=== PATIENT | female | born 1940 | race Caucasian/White ===

== ENCOUNTER 2019-05-28 13:15 | Emergency (ER) | payer MEDICARE, BC ==
[2019-05-28 13:38] VITALS: BP 143/77
[2019-05-28] MEDS ORDERED: Lidocaine 1% MPF ** 5 ML VIAL INJ ONE (13:49)
--- NOTE | 2019-05-28 14:16 | UC ---
Skin Complaint HPI - HPI Summary HPI Summary: Pt presents with c/o of soft, mildly tender "sebaceous cyst" to anterior chest that began 1 week prior. Pt states she has been "hot packing" the area but no improvement or relief. - History of Current Complaint Chief Complaint: UCSkin Time Seen by Provider: 05/28/19 13:32 Stated Complaint: SKIN CONCERN Hx Obtained From: Patient ?: No Onset/Duration: Gradual Onset, Lasting Days - 7, Still Present Skin Exposure Onset/Duration: Worse Since: - onset Timing: Constant Onset Severity: Mild Current Severity: Moderate Pain Intensity: 2 Location: Discrete - right side of chest wall between breasts. Character: Redness, Raised, Painful Aggravating Factor(s): Touch Alleviating Factor(s): Nothing Associated Signs & Symptoms: Positive: Tenderness Related History: Other: - has hx of sebaceous cysts - Allergy/Home Medications Allergies/Adverse Reactions: Allergies Allergy/AdvReac Type Severity Reaction Status Date / Time No Known Allergies Allergy Verified 05/28/19 13:35 Home Medications: Home Medications Cholecalciferol (Vitamin D3) [Vitamin D3] 4,000 unit PO DAILY 05/28/19 [History Confirmed 05/28/19] Losartan TAB* [Cozaar TAB*] 50 mg PO DAILY 05/28/19 [History Confirmed 05/28/19] Omeprazole 40 mg PO DAILY 05/28/19 [History Confirmed 05/28/19] PMH/Surg Hx/FS Hx/Imm Hx Previously Healthy: Yes - Surgical History Surgical History: Yes Surgery Procedure, Year, and Place: HYSTERECTOMY, PACE MAKER INSERTIONx2. right ear surgery - Family History Known Family History: Positive: Hypertension - Social History Occupation: Retired Lives: Alone Alcohol Use: None Substance Use Type: None Smoking Status (MU): Never Smoked Tobacco Have You Smoked in the Last Year: No - Immunization History Vaccination Up to Date: Yes Review of Systems All Other Systems Reviewed And Are Negative: Yes Constitutional: Positive: Negative Skin: Positive: Other - infected cyst, hx of sebaceous cysts Eyes: Positive: Negative ENT: Positive: Negative Respiratory: Positive: Negative Cardiovascular: Positive: Negative Gastrointestinal: Positive: Negative Genitourinary: Positive: Negative Motor: Positive: Negative Neurovascular: Positive: Negative Musculoskeletal: Positive: Negative Neurological: Positive: Negative Psychological: Positive: Negative Is Patient Immunocompromised?: No Physical Exam Triage Information Reviewed: Yes Appearance: Well-Appearing Vital Signs: Initial Vital Signs Temp 97.7 F 05/28/19 13:32 Pulse 82 05/28/19 13:32 Resp 20 05/28/19 13:32 BP 143/77 05/28/19 13:32 Pulse Ox 98 05/28/19 13:32 Vital Signs Reviewed: Yes Eye Exam: Normal ENT Exam: Normal Dental Exam: Normal Neck exam: Normal Respiratory Exam: Normal Respiratory: Positive: No respiratory distress Musculoskeletal Exam: Normal Neurological Exam: Normal Psychological Exam: Normal Skin Exam: Other - 3 CM X 2 Cm soft, erythematous, tender flucuant area with purrulent drainage right medial upper breast just right of sternum Procedures - Incision and Drainage Right Anterior Breast Site: right anterior proximal medial breast/chest just lateral of sternum Anesthesia: Local Instrument(s): Scalpel - 11 Packing: Other - no packing, small amount of purulent drainage, wound cleansed with normal saline Course/Dx - Differential Diagnoses - Skin Complaint Differential Diagnoses: Abscess - Diagnoses Provider Diagnosis: Abscess Discharge - Sign-Out/Discharge Documenting (check all that apply): Patient Departure All imaging exams completed and their final reports reviewed: No Studies - Discharge Plan Condition: Stable Disposition: HOME Prescriptions: Cephalexin CAP* [Keflex 500 CAP*] 500 mg PO Q12H #20 cap Patient Education Materials: Abscess (ED), Abscess Incision and Drainage (DC) Referrals: Jhonathan Tan MD [Primary Care Provider] - If Needed Additional Instructions: Please change your dressing at least twice a day, more frequently if the dressing becomes soiled or wet. Please wash the area with soap and water. Apply a dressing to avoid drainage on your clothes. If your symptoms do not improve, please follow up with your PCP or go to the closest emergency room - Billing Disposition and Condition Condition: STABLE Disposition: Home
== END 2019-05-28 14:29 | disposition home or self-care (01) ==
LOC: UCCORT 13:15
DX: L02.213 Cutaneous abscess of chest wall (principal); Z95.0 Presence of cardiac pacemaker
CPT/HCPCS: 10060; 87070; 87076; 87205; 87640; 87641; 99212; G0463

== ENCOUNTER 2019-10-19 09:28 | Emergency (ER) | payer MEDICARE, BC ==
[2019-10-19 09:43] VITALS: BP 130/62
--- NOTE | 2019-10-19 10:31 | UC ---
Skin Complaint HPI - HPI Summary HPI Summary: Pt presents with c/o tender erythematous lump between breasts. Pt has been applying hot pack to area frequently and states she is unable to open and drain the "abscess". - History of Current Complaint Chief Complaint: UCSkin Time Seen by Provider: 10/19/19 10:25 Stated Complaint: SKIN CONCERN Hx Obtained From: Patient ?: No Onset/Duration: Gradual Onset, Lasting Days, Still Present Skin Exposure Onset/Duration: Days Ago Timing: Constant Onset Severity: Mild Current Severity: Moderate Pain Intensity: 6 Location: Discrete - sternum between breasts Character: Swelling, Redness, Raised, Painful Aggravating Factor(s): Touch Alleviating Factor(s): Nothing Associated Signs & Symptoms: Positive: Tenderness - Allergy/Home Medications Allergies/Adverse Reactions: Allergies Allergy/AdvReac Type Severity Reaction Status Date / Time No Known Allergies Allergy Verified 10/19/19 09:43 Home Medications: Home Medications Acetaminophen [Acetaminophen Extra Strength] 1,000 mg PO Q4HR PRN 10/19/19 [ History Confirmed 10/19/19] PMH/Surg Hx/FS Hx/Imm Hx Previously Healthy: Yes Cardiovascular History: Cardiac Disease, Hypertension, Pacemaker/ICD - Surgical History Surgical History: Yes Surgery Procedure, Year, and Place: HYSTERECTOMY, PACE MAKER INSERTIONx2. right ear surgery - Family History Known Family History: Positive: Hypertension - Social History Occupation: Retired Lives: With Family Alcohol Use: None Substance Use Type: None Smoking Status (MU): Never Smoked Tobacco Have You Smoked in the Last Year: No - Immunization History Vaccination Up to Date: Yes Review of Systems All Other Systems Reviewed And Are Negative: Yes Constitutional: Positive: Negative Skin: Positive: Other - firm, tender mass/lump between Eyes: Positive: Negative ENT: Positive: Negative Respiratory: Positive: Negative Cardiovascular: Positive: Negative Gastrointestinal: Positive: Negative Genitourinary: Positive: Negative Motor: Positive: Negative Neurovascular: Positive: Negative Musculoskeletal: Positive: Negative Neurological: Positive: Negative Psychological: Positive: Negative Is Patient Immunocompromised?: No Physical Exam Triage Information Reviewed: Yes Appearance: Well-Appearing Vital Signs: Initial Vital Signs Temp 98.3 F 10/19/19 09:38 Pulse 74 10/19/19 09:38 Resp 16 10/19/19 09:38 BP 130/62 10/19/19 09:38 Pulse Ox 100 10/19/19 09:38 Vital Signs Reviewed: Yes Eye Exam: Normal ENT: Positive: Hearing grossly normal Dental Exam: Normal Neck exam: Normal Respiratory: Positive: No respiratory distress Musculoskeletal Exam: Normal Neurological Exam: Normal Psychological Exam: Normal Skin Exam: Other - palpable firm tender lump/mass left medial aspect of breast along sternum, and additional moveable, tenderfirm, lump center sternum. Mild/ moderate erythema. mass/lumps each are moveable and each measure ~ 3cm X 2cm. Course/Dx - Course Course Of Treatment: I discussed incision and drainage and pt opted to continue to warm pack and take antibiotics. I discussed seeking follow up with PCP and a surgeon. Pt stated understanding of plan of care and said she would decide what she wanted to do at home. - Differential Diagnoses - Skin Complaint Differential Diagnoses: Abscess, Cellulitis, Other - mass - Diagnoses Provider Diagnosis: Abscess Discharge ED - Sign-Out/Discharge Documenting (check all that apply): Patient Departure All imaging exams completed and their final reports reviewed: No Studies - Discharge Plan Condition: Stable Disposition: HOME Prescriptions: Cephalexin CAP* [Keflex 500 CAP*] 500 mg PO Q6H #40 cap Patient Education Materials: Abscess (ED), Warm Compress or Soak (ED) Referrals: Jhonathan Tan MD [Primary Care Provider] - If Needed - Billing Disposition and Condition Condition: STABLE Disposition: Home
== END 2019-10-19 10:44 | disposition home or self-care (01) ==
LOC: UCCORT 09:28
DX: N61.1 Abscess of the breast and nipple (principal); I10 Essential (primary) hypertension; Z95.0 Presence of cardiac pacemaker
CPT/HCPCS: 99212; G0463